=== PATIENT | female | born 1990 | race Caucasian/White ===

== ENCOUNTER 2018-12-24 13:20 | Emergency (ER) | payer MEDICAID, OTHER ==
[~2018-12-24] VITALS: Ht 170.2 cm; Wt 64.0 kg
[2018-12-24 13:28] VITALS: BP 113/76
[2018-12-24] MEDS ORDERED: PROPARACAINE OPHTH 0.5%, 15ML ONE (13:35)
--- NOTE | 2018-12-24 13:41 | NUR ---
LUNCH RN: PATIENT WITH MEHDI VACA
--- NOTE | 2018-12-24 14:52 | NUR ---
TASK RN: DC EDUCATION PROVIDED, PT DEMONSTRATES UNDERSTANDING. PT AMBULATED STEADILY TO DC WITH RN
== END 2018-12-24 14:54 | disposition home or self-care (01) ==
LOC: ED 13:57
DX: H10.31 Unspecified acute conjunctivitis, right eye (principal)
CPT/HCPCS: 99283

== ENCOUNTER 2019-03-22 15:13 | Emergency (ER) | payer MEDICAID ==
[~2019-03-22] VITALS: Ht 170.2 cm; Wt 67.0 kg
[2019-03-22 15:47] LABS: BASOPHILS # (AUTO) 0.03 x10^3/uL (0-0.1); BASOPHILS % (AUTO) 0 % (0-1); EOSINOPHILS # (AUTO) 0.06 x10^3/uL (0-0.4); EOSINOPHILS % (AUTO) 1 % (1-7); LYMPHOCYTES # (AUTO) 1.82 x10^3/uL (1-3.4); LYMPHOCYTES % (AUTO) 18 % (22-44); MD NO; MEAN CORPUSCULAR HEMOGLOBIN 31.4 pg (27.0-34.8); MEAN CORPUSCULAR HGB CONC 34.9 g/dL (32.4-35.8); MEAN CORPUSCULAR VOLUME 89.9 fL (80-100); MONOCYTES # (AUTO) 0.35 x10^3/uL (0.2-0.8); MONOCYTES % (AUTO) 4 % (2-9); NEUTROPHILS # (AUTO) 7.84 x10^3/uL (1.8-6.8); NEUTROPHILS % (AUTO) 78 % (42-75); PLATELET COUNT 186 x10^3/uL (130-400); RED BLOOD COUNT 4.13 x10^6/uL (3.82-5.3); RED CELL DISTRIBUTION WIDTH 12.9 % (9.6-15.2)
[2019-03-22 16:05] LABS: ALANINE AMINOTRANSFERASE 15 U/L (12-78); ALBUMIN 3.5 g/dL (3.4-5.0); ANION GAP 6 mmol/L (5-15); CALCIUM 9.1 mg/dL (8.5-10.1); CHLORIDE 106 mmol/L (98-107); CREATININE 0.54 mg/dL (0.55-1.02)
[2019-03-22 16:16] LABS: ALKALINE PHOSPHATASE 70 U/L (45-117); BILIRUBIN,TOTAL 0.5 mg/dL (0.2-1.0); FREE T4 (FREE THYROXINE) 0.96 ng/dL (0.76-1.46); THYROID STIMULATING HORMONE 0.896 mIU/L (0.358-3.740)
[2019-03-22 18:12] VITALS: BP 116/64
--- NOTE | 2019-03-22 18:13 | NUR ---
Patient/Caregiver given discharge instructions and they have confirmed that they understand the instructions. Patient ambulatory with steady gait.
== END 2019-03-22 18:13 | disposition home or self-care (01) ==
LOC: ED 17:55
DX: O99.342 Other mental disorders complicating pregnancy, second trimester (principal); O13.2 Gestational [pregnancy-induced] hypertension without significant proteinuria, second trimester; R00.2 Palpitations; F41.9 Anxiety disorder, unspecified; Z3A.14 14 weeks gestation of pregnancy
CPT/HCPCS: 36415; 71046; 80053; 84439; 84443; 85025; 93005; 99284

== ENCOUNTER 2019-07-26 09:23 | Emergency (ER) | payer MEDICAID ==
[~2019-07-26] VITALS: Ht 170.2 cm; Wt 82.9 kg
--- NOTE | 2019-07-26 09:45 | NUR ---
PT HERE TODAY FOR DIZZINESS- STATES IT HAS BEEN GOING ON THE LAST TWO DAYS AND TODAY SHE FELT "FAINT" AT WORK WHILE SITTING DOWN- STATES SHE FELT HER HEAD GO FUZZY WHILE SITTING AND TYPING THIS MORNING. PT IS 32 WEEKS AND HAS BEEN FOLLOWING UP WITH OB APPROPRIATELY. STATES SHE LAST SAW HER OB 2 WEEKS AGO. STATES SHE HAD PRE-ECLAMPSIA WITH HER LAST CHILD. DENIES VAGINAL BLEEDING OR CRAMPING. DENIES PAIN. RESTING ON GURNEY. CONNECTED TO MONITOR. VSS. ORNELAS.
[2019-07-26] MEDS ORDERED: LABE200T6 PO (09:47)
--- NOTE | 2019-07-26 09:59 | NUR ---
PT AMBULATORY WITH STEADY GAIT TO BATHROOM TO PROVIDE URINE SAMPLE. LABOR AND DELIVERY CALLED AT THIS TIME- STATES A NURSE WILL BE DOWN TO ASSESS PT SOON.
[2019-07-26 10:24] LABS: MICROSCOPIC NOT IND
[2019-07-26 10:25] LABS: BASOPHILS # (AUTO) 0.02 x10^3/uL (0-0.1); BASOPHILS % (AUTO) 0 % (0-1); EOSINOPHILS # (AUTO) 0.12 x10^3/uL (0-0.4); EOSINOPHILS % (AUTO) 2 % (1-7); LYMPHOCYTES # (AUTO) 1.42 x10^3/uL (1-3.4); LYMPHOCYTES % (AUTO) 17 % (22-44); MD NO; MEAN CORPUSCULAR HEMOGLOBIN 32.6 pg (27.0-34.8); MEAN CORPUSCULAR HGB CONC 34.6 g/dL (32.4-35.8); MEAN CORPUSCULAR VOLUME 94.4 fL (80-100); MEAN PLATELET VOLUME 9.9 fL (7.4-10.4); MONOCYTES # (AUTO) 0.48 x10^3/uL (0.2-0.8); MONOCYTES % (AUTO) 6 % (2-9); NEUTROPHILS # (AUTO) 6.41 x10^3/uL (1.8-6.8); NEUTROPHILS % (AUTO) 76 % (42-75); PLATELET COUNT 153 x10^3/uL (130-400); RED BLOOD COUNT 3.41 x10^6/uL (3.82-5.3); RED CELL DISTRIBUTION WIDTH 12.4 % (9.6-15.2)
[2019-07-26 10:29] LABS: CULTURE INDICATED? NO
[2019-07-26 10:34] LABS: ALANINE AMINOTRANSFERASE 18 U/L (12-78); ALBUMIN 2.7 g/dL (3.4-5.0); ANION GAP 8 mmol/L (5-15); CALCIUM 8.3 mg/dL (8.5-10.1); CHLORIDE 108 mmol/L (98-107); CREATININE 0.59 mg/dL (0.55-1.02)
[2019-07-26 10:36] LABS: ALKALINE PHOSPHATASE 85 U/L (45-117); BILIRUBIN,TOTAL 0.5 mg/dL (0.2-1.0); TOTAL PROTEIN 6.3 g/dL (6.4-8.2)
--- NOTE | 2019-07-26 11:04 | NUR ---
PER CARIN ROSAS ON L&D, REACTIVE NST WITH ONE CONTRACTION. WILL INFORM .
[2019-07-26 11:07] VITALS: BP 121/89
--- NOTE | 2019-07-26 11:08 | NUR ---
PT RESTING ON [facility]. [facility]. VSS. DENIES NEEDS.
[2019-09-09] MEDS ORDERED: LABE100T6 PO (11:33)
== END 2019-07-26 12:10 | disposition home or self-care (01) ==
LOC: ED 12:00
DX: O26.893 Other specified pregnancy related conditions, third trimester (principal); R42 Dizziness and giddiness; I10 Essential (primary) hypertension; Z3A.32 32 weeks gestation of pregnancy
CPT/HCPCS: 36415; 80053; 81003; 85025; 93005; 99284